=== PATIENT | female | born 1930 | race Caucasian/White ===

== ENCOUNTER 2017-05-16 19:14 | Inpatient (IN) | payer OTHER ==
[~2017-05-16] VITALS: Ht 170.2 cm; Wt 93.5 kg
[~2017-05-16 19:14] MED LIST: ACETAMINOPHEN325 M1 PO; ALPRAZOLAM0.25 MG PO; ATARAX,VISTARIL25 MG PO; COLACE100 MG PO; EFFEXOR75 MG PO; LOTENSIN20 MG PO; MAGIC BULLET10 MG RC; MILK OF MAGNESI10 ML PO; NITROSTAT0.4 MG PO; NITROSTAT0.4 MG SL; PERCOCET 5/31 TABLET PO; PRILOSEC20 MG PO; REGLAN5 MG PO; SENNA LAXATIVE1 EACH PO; TOPROL XL50 MG PO; TRAMADOL HCL50 MG PO; VICODIN,LORT1 TABLET PO; ZOLOFT50 MG PO
[2017-05-16 19:37] LABS: MCH 29.9 PG (29.0-34.0); MCHC 31.9 G/DL (30.0-36.0); MCV 93.7 FL (83-99); MEAN PLAT.VOLUME 9.8 uM^3 (9.5-12.4); PLATELET COUNT 242 K/uL (156-360); RBC DIS.WIDTH-CV 13.2 % (11.8-14.6); RBC DIS.WIDTH-SD 45.1 % (39-53); RED BLOOD COUNT 3.95 M/uL (3.80-5.20); WHITE BLOOD COUNT 6.1 K/uL (4.1-10.2)
[2017-05-16 19:49] LABS: CHLORIDE 103 mEq/L (99-109); POTASSIUM 3.5 mEq/L (3.7-5.4); SODIUM 139 mEq/L (136-147)
[2017-05-16 19:51] LABS: GLUCOSE 121 mg/dL (70-99)
[2017-05-16 19:52] LABS: ANION GAP 11 MEQ/L (2-14)
[2017-05-16 19:54] LABS: GFR ESTIMATE (CALCULATED) 50 mL/min/
[2017-05-16 19:55] LABS: UREA NITROGEN (BUN) 16 mg/dL (9-23)
[2017-05-16 20:54] LABS: TROP-I INTERPRETATION NEGATIVE; TROPONIN-I < 0.01 ng/mL (0.0-0.30)
[2017-05-16] MEDS ORDERED: NORVASC10 MG PO (21:05)
[2017-05-16] MEDS ORDERED: TOPROL XL100 MG PO (21:05)
[2017-05-16] MEDS ORDERED: VITAMIN B-12500 MC5 SL (21:06)
[2017-05-16] MEDS ORDERED: ATARAX10 MG PO (21:07)
[2017-05-16] MEDS ORDERED: HYDROCODON-ACE1 EAC7 PO ×2 (21:08→21:12)
[2017-05-16] MEDS ORDERED: SENNA S TABLET1 EACH PO (21:08)
[2017-05-16] MEDS ORDERED: LIDOCAINE20 MG/1 M3 IJ (21:11)
[2017-05-16] MEDS ORDERED: EXTRA STRENGTH500 M1 PO (21:12)
[2017-05-16] MEDS ORDERED: IPRATR-ALBUTEROL3 ML IH (21:13)
[2017-05-16] MEDS ORDERED: ENEMA133 M2 PR (21:15)
[2017-05-16] MEDS ORDERED: ROBAFEN CF SYR118 M1 PO (21:15)
[2017-05-16] MEDS ORDERED: MILK OF MAGN PO (21:16)
[2017-05-16] MEDS ORDERED: ACETAMINOPHEN325 M1 PO (21:17)
[2017-05-16] MEDS ORDERED: BISAC-EVAC10 MG PR (21:20)
[2017-05-16] MEDS ORDERED: DEEP SEA 0.65% BOTH NARES (21:21)
[2017-05-16] MEDS ORDERED: DUONEB 2.5-0.5 M3 ML AEROSOL (21:23)
[2017-05-16] MEDS ORDERED: PROTONIX40 MG PO (21:24)
[2017-05-16] MEDS ORDERED: GABAPENTIN300 MG PO (21:25)
[2017-05-16] MEDS ORDERED: EFFEXOR XR150 MG PO (23:14)
[2017-05-16 23:45] VITALS: BP 141/59
[2017-05-17 00:45] LABS: INFLUENZA A VIRAL ANTIGEN NEGATIVE; INFLUENZA B VIRAL ANTIGEN NEGATIVE
[2017-05-17 04:40] VITALS: BP 124/67
[2017-05-17 06:01] LABS: EOSINOPHIL (%) 3.4 % (0-5); EOSINOPHIL COUNT 0.2 K/uL (0-0.3); HEMATOCRIT 34.8 % (36.0-46.0); IMMATURE GRANULOCYTE (%) 0.7 % (0.0-0.7); INSTRUMENT ABS NEUTROPHIL CT 3.9 K/uL; LYMPHOCYTE COUNT 0.9 K/uL (1.0-2.8); MCH 30.6 PG (29.0-34.0); MCHC 32.2 G/DL (30.0-36.0); MCV 95.1 FL (83-99); MEAN PLAT.VOLUME 10.4 uM^3 (9.5-12.4); MONOCYTE (%) 9.9 % (3-12); MONOCYTE COUNT 0.6 K/uL (0-0.8); NEUTROPHIL (%) 69.9 % (45-76); NEUTROPHIL COUNT 3.9 K/uL (1.8-6.4); PLATELET COUNT 234 K/uL (156-360); RBC DIS.WIDTH-CV 13.5 % (11.8-14.6); RBC DIS.WIDTH-SD 46.5 % (39-53); RED BLOOD COUNT 3.66 M/uL (3.80-5.20); WHITE BLOOD COUNT 5.6 K/uL (4.1-10.2)
[2017-05-17 06:28] LABS: ANION GAP 10 MEQ/L (2-14); CHLORIDE 106 MEQ/L (99-109); GFR ESTIMATE (CALCULATED) > 59 mL/min/; GLUCOSE 132 mg/dL (70-99); POTASSIUM 4.1 MEQ/L (3.7-5.4); SAMPLE HEMOLYSIS CHECK 0; SAMPLE ICTERIC CHECK 0; SAMPLE LIPEMIA CHECK 0; SODIUM 141 MEQ/L (136-147); UREA NITROGEN (BUN) 13 mg/dL (9-23)
[2017-05-17 06:45] LABS: METH RESISTANT S AUREUS PCR NEGATIVE (NEGATIVE)
[2017-05-17 06:46] LABS: PROBE CHECK PASS; SPECIMEN PROCESSING CONTROL PASS
[2017-05-17 08:24] VITALS: BP 106/72
[2017-05-17 11:36] VITALS: BP 106/61
[2017-05-17 15:23] VITALS: BP 116/69
[2017-05-17 19:30] VITALS: BP 99/52
[2017-05-17 23:00] VITALS: BP 121/90
[2017-05-18 03:15] VITALS: BP 129/71
[2017-05-18 06:20] LABS: EOSINOPHIL (%) 0 % (0-5); HEMATOCRIT 34.8 % (36.0-46.0); IMMATURE GRANULOCYTE (%) 0.7 % (0.0-0.7); INSTRUMENT ABS NEUTROPHIL CT 3.9 K/uL; LYMPHOCYTE COUNT 0.5 K/uL (1.0-2.8); MCH 30.5 PG (29.0-34.0); MCHC 31.6 G/DL (30.0-36.0); MCV 96.4 FL (83-99); MEAN PLAT.VOLUME 10.2 uM^3 (9.5-12.4); MONOCYTE (%) 1.8 % (3-12); MONOCYTE COUNT 0.1 K/uL (0-0.8); NEUTROPHIL (%) 85.9 % (45-76); NEUTROPHIL COUNT 3.9 K/uL (1.8-6.4); PLATELET COUNT 228 K/uL (156-360); RBC DIS.WIDTH-CV 13.8 % (11.8-14.6); RBC DIS.WIDTH-SD 49.1 % (39-53); RED BLOOD COUNT 3.61 M/uL (3.80-5.20); WHITE BLOOD COUNT 4.6 K/uL (4.1-10.2)
[2017-05-18 06:45] LABS: ANION GAP 8 MEQ/L (2-14); CHLORIDE 108 MEQ/L (99-109); GFR ESTIMATE (CALCULATED) 41 mL/min/; GLUCOSE 149 mg/dL (70-99); POTASSIUM 4.8 MEQ/L (3.7-5.4); SAMPLE HEMOLYSIS CHECK 0; SAMPLE ICTERIC CHECK 0; SAMPLE LIPEMIA CHECK 0; SODIUM 141 MEQ/L (136-147); UREA NITROGEN (BUN) 16 mg/dL (9-23)
[2017-05-18 08:00] VITALS: BP 124/68
[2017-05-18 10:51] VITALS: BP 101/58
[2017-05-18 15:00] VITALS: BP 105/67
[2017-05-18 19:00] VITALS: BP 104/77
[2017-05-18 23:00] VITALS: BP 116/57
[2017-05-19 03:30] VITALS: BP 121/58
[2017-05-19 05:50] LABS: ANION GAP 9 MEQ/L (2-14); CHLORIDE 105 MEQ/L (99-109); GFR ESTIMATE (CALCULATED) 30 mL/min/; GLUCOSE 132 mg/dL (70-99); POTASSIUM 4.8 MEQ/L (3.7-5.4); SAMPLE HEMOLYSIS CHECK 0; SAMPLE ICTERIC CHECK 0; SAMPLE LIPEMIA CHECK 0; SODIUM 140 MEQ/L (136-147)
[2017-05-19 05:53] LABS: EOSINOPHIL (%) 0 % (0-5); HEMATOCRIT 35.4 % (36.0-46.0); IMMATURE GRANULOCYTE (%) 0.7 % (0.0-0.7); IMMATURE GRANULOCYTE COUNT 0.1 K/uL; INSTRUMENT ABS NEUTROPHIL CT 6.1 K/uL; LYMPHOCYTE COUNT 0.6 K/uL (1.0-2.8); MCH 30.3 PG (29.0-34.0); MCHC 31.6 G/DL (30.0-36.0); MCV 95.7 FL (83-99); MEAN PLAT.VOLUME 10.4 uM^3 (9.5-12.4); MONOCYTE (%) 5.1 % (3-12); MONOCYTE COUNT 0.4 K/uL (0-0.8); NEUTROPHIL (%) 86.4 % (45-76); NEUTROPHIL COUNT 6.1 K/uL (1.8-6.4); PLATELET COUNT 249 K/uL (156-360); RBC DIS.WIDTH-SD 49.1 % (39-53); WHITE BLOOD COUNT 7.1 K/uL (4.1-10.2)
[2017-05-19 06:40] LABS: UREA NITROGEN (BUN) 28 mg/dL (9-23)
[2017-05-19 08:37] VITALS: BP 125/86
[2017-05-19 12:31] VITALS: BP 106/69
[2017-05-19 16:00] VITALS: BP 129/65
[2017-05-19 20:44] VITALS: BP 119/67
[2017-05-20 00:23] VITALS: BP 126/68
[2017-05-20 04:29] VITALS: BP 121/74
[2017-05-20 06:09] LABS: EOSINOPHIL (%) 0 % (0-5); HEMATOCRIT 37.4 % (36.0-46.0); IMMATURE GRANULOCYTE (%) 1.2 % (0.0-0.7); IMMATURE GRANULOCYTE COUNT 0.1 K/uL; INSTRUMENT ABS NEUTROPHIL CT 6.8 K/uL; LYMPHOCYTE COUNT 0.5 K/uL (1.0-2.8); MCH 29.3 PG (29.0-34.0); MCHC 30.5 G/DL (30.0-36.0); MCV 96.1 FL (83-99); MEAN PLAT.VOLUME 9.9 uM^3 (9.5-12.4); MONOCYTE (%) 5.9 % (3-12); MONOCYTE COUNT 0.5 K/uL (0-0.8); NEUTROPHIL COUNT 6.8 K/uL (1.8-6.4); PLATELET COUNT 256 K/uL (156-360); RBC DIS.WIDTH-CV 14.2 % (11.8-14.6); RBC DIS.WIDTH-SD 49.7 % (39-53); RED BLOOD COUNT 3.89 M/uL (3.80-5.20); WHITE BLOOD COUNT 7.8 K/uL (4.1-10.2)
[2017-05-20 06:46] LABS: ANION GAP 9 MEQ/L (2-14); CHLORIDE 106 MEQ/L (99-109); GFR ESTIMATE (CALCULATED) 35 mL/min/; GLUCOSE 118 mg/dL (70-99); POTASSIUM 4.6 MEQ/L (3.7-5.4); SAMPLE HEMOLYSIS CHECK 0; SAMPLE ICTERIC CHECK 0; SAMPLE LIPEMIA CHECK 0; SODIUM 139 MEQ/L (136-147); UREA NITROGEN (BUN) 37 mg/dL (9-23)
[2017-05-20 08:01] VITALS: BP 127/71
[2017-05-20 11:57] VITALS: BP 104/73
[2017-05-20] MEDS ORDERED: DOXYCYCLINE HY100 M3 PO (14:24)
[2017-05-20] MEDS ORDERED: LEVOFLOXACIN750 MG PO (14:25)
[2017-05-20] MEDS ORDERED: ASPIR-LOW81 MG PO (14:26)
[2017-05-20] MEDS ORDERED: PREDNISONE10 MG PO (14:27)
[2017-05-20 15:43] VITALS: BP 146/68
== END 2017-05-20 17:37 | DRG 193 ==
LOC: EME → EDBD 19:14 → 4EAST 21:33 → EDOF 21:33 → 4EAST 23:44
PROVIDERS: Emergency Medicine; Hospitalist; Internal Medicine
DX: J18.9 Pneumonia, unspecified organism (principal); G93.41 Metabolic encephalopathy; N17.9 Acute kidney failure, unspecified; J96.11 Chronic respiratory failure with hypoxia; I48.91 Unspecified atrial fibrillation; I27.2 Other secondary pulmonary hypertension; I07.1 Rheumatic tricuspid insufficiency; G20 Parkinson's disease; J98.01 Acute bronchospasm; E78.5 Hyperlipidemia, unspecified; F32.9 Major depressive disorder, single episode, unspecified; I10 Essential (primary) hypertension; K21.9 Gastro-esophageal reflux disease without esophagitis; Y95 Nosocomial condition; Z99.81 Dependence on supplemental oxygen; Z85.038 Personal history of other malignant neoplasm of large intestine; Z87.891 Personal history of nicotine dependence
CPT/HCPCS: 71010; 71020; 71250; 80048; 81003; 84484; 85025; 85027; 87040; 87070; 87205; 87449; 87502; 87641; 93005; 93306; 94640; 94640 76; 94668; 94799; 99202; 99281; 99285; J0456; J1644; J1940; J2543; J2920; J3370; J7030; J7050; J7512

== ENCOUNTER 2017-06-08 01:26 | Inpatient (IN) | payer OTHER ==
[~2017-06-08] VITALS: Ht 167.6 cm; Wt 108.8 kg
[~2017-06-08 01:26] MED LIST changes: +ASPIR-LOW81 MG PO; +ATARAX10 MG PO; +BISAC-EVAC10 MG PR; +DEEP SEA 0.65% BOTH NARES; +DOXYCYCLINE HY100 M3 PO; +DUONEB 2.5-0.5 M3 ML AEROSOL; +EFFEXOR XR150 MG PO; +ENEMA133 M2 PR; +EXTRA STRENGTH500 M1 PO; +GABAPENTIN300 MG PO; +HYDROCODON-ACE1 EAC7 PO; +IPRATR-ALBUTEROL3 ML IH; +LEVOFLOXACIN750 MG PO; +LIDOCAINE20 MG/1 M3 IJ; +MILK OF MAGN PO; +NORVASC10 MG PO; +PREDNISONE10 MG PO; +PROTONIX40 MG PO; +ROBAFEN CF SYR118 M1 PO; +SENNA S TABLET1 EACH PO; +TOPROL XL100 MG PO; +VITAMIN B-12500 MC5 SL
[2017-06-08 02:22] LABS: BASE EXCESS 5.9 mEq/L (-3 to +3); BICARBONATE 33.5 mEq/L (22-26); METHEMOGLOBIN 1.2 % (0-1.5); PCO2 65 mm Hg (35-45); PO2 76 mm Hg (80-100); pH 7.32 (7.35-7.45)
[2017-06-08 02:24] LABS: COMMENTS - BLOOD GASES C+A+; DEVICE NC; O2 FLOW 6 L/MIN; SITE RR
[2017-06-08 02:51] LABS: EOSINOPHIL (%) 2.7 % (0-5); EOSINOPHIL COUNT 0.2 K/uL (0-0.3); HEMATOCRIT 33.9 % (36.0-46.0); IMMATURE GRANULOCYTE (%) 0.5 % (0.0-0.7); INSTRUMENT ABS NEUTROPHIL CT 4.4 K/uL; LYMPHOCYTE COUNT 0.6 K/uL (1.0-2.8); MCH 29.7 PG (29.0-34.0); MCHC 30.4 G/DL (30.0-36.0); MCV 97.7 FL (83-99); MEAN PLAT.VOLUME 9.9 uM^3 (9.5-12.4); MONOCYTE (%) 8.3 % (3-12); MONOCYTE COUNT 0.5 K/uL (0-0.8); NEUTROPHIL (%) 77.7 % (45-76); NEUTROPHIL COUNT 4.4 K/uL (1.8-6.4); PLATELET COUNT 185 K/uL (156-360); RBC DIS.WIDTH-CV 14.9 % (11.8-14.6); RBC DIS.WIDTH-SD 52.7 % (39-53); RED BLOOD COUNT 3.47 M/uL (3.80-5.20); WHITE BLOOD COUNT 5.7 K/uL (4.1-10.2)
[2017-06-08 03:03] LABS: INTER. NORMALIZED RATIO 1.1; PROTHROMBIN TIME 11.4 (9.2-11.2); PTT 32.1 (25-32)
[2017-06-08 03:04] LABS: CHLORIDE 103 mEq/L (99-109); POTASSIUM 4.8 mEq/L (3.7-5.4); SODIUM 141 mEq/L (136-147)
[2017-06-08 03:06] LABS: GLUCOSE 133 mg/dL (70-99)
[2017-06-08 03:07] LABS: ANION GAP 10 MEQ/L (2-14)
[2017-06-08 03:09] LABS: GFR ESTIMATE (CALCULATED) 35 mL/min/
[2017-06-08 03:10] LABS: UREA NITROGEN (BUN) 27 mg/dL (9-23)
[2017-06-08 03:13] LABS: TROP-I INTERPRETATION NEGATIVE; TROPONIN-I < 0.01 ng/mL (0.0-0.30)
[2017-06-08 04:02] LABS: ADD MIUA? YES; BILIRUBIN NEGATIVE; BLOOD NEGATIVE; COLOR YELLOW ((YELLOW)); GLUCOSE (STRIP) NEGATIVE; KETONES NEGATIVE; LEUKOCYTES NEGATIVE; NITRITE NEGATIVE; PROTEIN (STRIP) 100; SPECIFIC GRAVITY 1.025 (1.000-1.030); UROBILINOGEN 0.2 MG/DL (0.2-1.0)
[2017-06-08 04:19] LABS: BACTERIA 3+ /HPF; CASTS PRESENT /LPF; EPITHELIAL CELLS 1+ /HPF; MUCUS 1+ /LPF; RED BLOOD CELLS NONE SEEN /HPF (0-5); UCUL ADDED? YES
[2017-06-08 04:20] LABS: CRYSTALS PRESENT
[2017-06-08 04:21] LABS: AMORPHOUS URATES CRYSTALS 2+; COARSE GRANULAR CASTS RARE /LPF
[2017-06-08 09:15] LABS: TROP-I INTERPRETATION NEGATIVE; TROPONIN-I < 0.01 ng/mL (0.0-0.30)
[2017-06-08] MEDS ORDERED: VITAMIN B-1000 MCG/1 PO (11:31)
[2017-06-08] MEDS ORDERED: VENLAFAXINE HC150 M1 PO (11:34)
[2017-06-08] MEDS ORDERED: ASPIR-LOW81 MG PO (11:35)
[2017-06-08] MEDS ORDERED: LASIX20 MG PO (11:36)
[2017-06-08] MEDS ORDERED: PRESERVISION A1 EAC2 PO (11:36)
[2017-06-08] MEDS ORDERED: POTASSIUM CHLO10 ME4 PO (11:37)
[2017-06-08] MEDS ORDERED: DUONEB 2.5-0.5 M3 ML AEROSOL (11:39)
[2017-06-08] MEDS ORDERED: COUGH SYRU100 MG/5 M PO (11:40)
[2017-06-08] MEDS ORDERED: OCEAN NASAL 0.645 ML BOTH NARES (11:41)
[2017-06-08] MEDS ORDERED: NITROSTAT0.4 MG SL (11:42)
[2017-06-08 13:36] LABS: TYPE OF FLUID PLEURAL
[2017-06-08 14:05] VITALS: BP 119/56
[2017-06-08 14:23] LABS: BODY FLUID LDH 87 IU/L
[2017-06-08 14:25] LABS: BODY FLUID RBC'S 27000 /MM^3 (0-100); BODY FLUID WBC'S 1144 /MM^3 (0-500)
[2017-06-08 14:30] LABS: MONONUCLEAR WBC'S 70 %; POLYNUCLEAR WBC'S 30 % (0-25)
[2017-06-08 15:09] LABS: TROP-I INTERPRETATION NEGATIVE; TROPONIN-I < 0.01 ng/mL (0.0-0.30)
[2017-06-08 17:16] VITALS: BP 126/77
[2017-06-08 19:12] VITALS: BP 130/97
[2017-06-08 23:35] VITALS: BP 148/87
[2017-06-09 04:19] VITALS: BP 165/101
[2017-06-09 05:42] LABS: EOSINOPHIL (%) 4.4 % (0-5); EOSINOPHIL COUNT 0.3 K/uL (0-0.3); HEMATOCRIT 36.4 % (36.0-46.0); IMMATURE GRANULOCYTE (%) 0.5 % (0.0-0.7); INSTRUMENT ABS NEUTROPHIL CT 4.2 K/uL; LYMPHOCYTE COUNT 0.6 K/uL (1.0-2.8); MCH 29.4 PG (29.0-34.0); MCHC 30.8 G/DL (30.0-36.0); MCV 95.5 FL (83-99); MONOCYTE (%) 10.1 % (3-12); MONOCYTE COUNT 0.6 K/uL (0-0.8); NEUTROPHIL (%) 73.7 % (45-76); NEUTROPHIL COUNT 4.2 K/uL (1.8-6.4); PLATELET COUNT 214 K/uL (156-360); RBC DIS.WIDTH-CV 14.6 % (11.8-14.6); RBC DIS.WIDTH-SD 50.4 % (39-53); RED BLOOD COUNT 3.81 M/uL (3.80-5.20); WHITE BLOOD COUNT 5.7 K/uL (4.1-10.2)
[2017-06-09 05:48] LABS: ANION GAP 10 MEQ/L (2-14); CHLORIDE 97 MEQ/L (99-109); GFR ESTIMATE (CALCULATED) 56 mL/min/; GLUCOSE 110 mg/dL (70-99); POTASSIUM 3.9 MEQ/L (3.7-5.4); SAMPLE HEMOLYSIS CHECK 0; SAMPLE ICTERIC CHECK 0; SAMPLE LIPEMIA CHECK 0; SODIUM 142 MEQ/L (136-147); UREA NITROGEN (BUN) 16 mg/dL (9-23)
[2017-06-09 07:52] LABS: INTERNAL CONTROL VALID? YES
[2017-06-09 08:30] VITALS: BP 138/87
[2017-06-09 12:11] VITALS: BP 121/79
[2017-06-09 15:35] VITALS: BP 106/72
[2017-06-09 20:10] VITALS: BP 119/75
[2017-06-10 00:12] VITALS: BP 130/65
[2017-06-10 03:18] LABS: BODY FLUID PH 7.9 (())
[2017-06-10 04:52] VITALS: BP 120/60
[2017-06-10 07:34] VITALS: BP 132/86
[2017-06-10] MEDS ORDERED: LASIX20 MG PO (11:56)
[2017-06-10] MEDS ORDERED: POTASSIUM CHLO10 ME4 PO (11:56)
[2017-06-10 12:15] VITALS: BP 122/84
== END 2017-06-10 15:34 | DRG 189 ==
LOC: EME → EDBD 01:26 → EME 01:26 → EDOF 07:34 → 4EAST 07:34
PROVIDERS: Emergency Medicine; Internal Medicine
PROC: 0W993ZZ Drainage of Right Pleural Cavity, Percutaneous Approach (ICD-10-PCS; principal; 2017-06-08)
DX: J96.21 Acute and chronic respiratory failure with hypoxia (principal); I50.31 Acute diastolic (congestive) heart failure; J90 Pleural effusion, not elsewhere classified; N17.9 Acute kidney failure, unspecified; I48.2 Chronic atrial fibrillation; I11.0 Hypertensive heart disease with heart failure; I27.2 Other secondary pulmonary hypertension; I07.1 Rheumatic tricuspid insufficiency; J44.9 Chronic obstructive pulmonary disease, unspecified; Z68.41 Body mass index [BMI] 40.0-44.9, adult; G20 Parkinson's disease; E66.9 Obesity, unspecified; K21.0 Gastro-esophageal reflux disease with esophagitis; F33.42 Major depressive disorder, recurrent, in full remission; F03.90 Unspecified dementia, unspecified severity, without behavioral disturbance, psychotic disturbance, mood disturbance, and anxiety; H91.90 Unspecified hearing loss, unspecified ear; J98.11 Atelectasis; E04.1 Nontoxic single thyroid nodule; Y95 Nosocomial condition; K76.89 Other specified diseases of liver; Z85.038 Personal history of other malignant neoplasm of large intestine; Z87.891 Personal history of nicotine dependence; Z79.82 Long term (current) use of aspirin
CPT/HCPCS: 36600; 70450; 71010; 71250; 74176; 76942; 80048; 81003; 82803; 83605; 83615; 83615 91; 83880; 83986 90; 84484; 85025; 85027; 85610; 85730; 87040; 87070; 87075; 87086; 87205; 87449; 88108; 88305; 89051; 92610 GN; 93005; 93970; 94799; 99281; 99283; J0692; J0696; J1644; J1940; J2543; J3370; J7050

== ENCOUNTER 2017-07-16 19:44 | Inpatient (IN) | payer OTHER ==
[~2017-07-16] VITALS: Ht 165.1 cm; Wt 89.0 kg
[~2017-07-16 19:44] MED LIST changes: +COUGH SYRU100 MG/5 M PO; +LASIX20 MG PO; +OCEAN NASAL 0.645 ML BOTH NARES; +POTASSIUM CHLO10 ME4 PO; +PRESERVISION A1 EAC2 PO; +VENLAFAXINE HC150 M1 PO; +VITAMIN B-1000 MCG/1 PO
[2017-07-16 20:15] LABS: EOSINOPHIL (%) 2.7 % (0-5); EOSINOPHIL COUNT 0.2 K/uL (0-0.3); HEMATOCRIT 36.8 % (36.0-46.0); IMMATURE GRANULOCYTE (%) 0.5 % (0.0-0.7); INSTRUMENT ABS NEUTROPHIL CT 5.6 K/uL; LYMPHOCYTE COUNT 1.3 K/uL (1.0-2.8); MCH 28.6 PG (29.0-34.0); MCHC 29.1 G/DL (30.0-36.0); MCV 98.4 FL (83-99); MEAN PLAT.VOLUME 10.2 uM^3 (9.5-12.4); NEUTROPHIL (%) 68.8 % (45-76); NEUTROPHIL COUNT 5.6 K/uL (1.8-6.4); PLATELET COUNT 222 K/uL (156-360); RBC DIS.WIDTH-CV 14.4 % (11.8-14.6); RBC DIS.WIDTH-SD 51.8 % (39-53); RED BLOOD COUNT 3.74 M/uL (3.80-5.20); WHITE BLOOD COUNT 8.1 K/uL (4.1-10.2)
[2017-07-16 20:24] LABS: CHLORIDE 102 mEq/L (99-109); POTASSIUM 5.3 mEq/L (3.7-5.4); SODIUM 145 mEq/L (136-147)
[2017-07-16 20:26] LABS: GLUCOSE 114 mg/dL (70-99)
[2017-07-16 20:28] LABS: ANION GAP 11 MEQ/L (2-14); TOTAL BILIRUBIN 1.4 mg/dL (0.0-1.0)
[2017-07-16 20:30] LABS: ALKALINE PHOSPHATASE 99 IU/L (3-129); GFR ESTIMATE (CALCULATED) 38 mL/min/
[2017-07-16 20:31] LABS: UREA NITROGEN (BUN) 33 mg/dL (9-23)
[2017-07-16 20:31] LABS: ADD MIUA? YES; BILIRUBIN NEGATIVE; BLOOD NEGATIVE; GLUCOSE (STRIP) NEGATIVE; KETONES NEGATIVE; LEUKOCYTES NEGATIVE; NITRITE NEGATIVE; PROTEIN (STRIP) 30; UROBILINOGEN 0.2 MG/DL (0.2-1.0)
[2017-07-16 20:36] LABS: TROP-I INTERPRETATION NEGATIVE; TROPONIN-I < 0.01 ng/mL (0.0-0.30)
[2017-07-16 20:42] LABS: COLOR YELLOW ((YELLOW))
[2017-07-16 20:50] LABS: BACTERIA NONE SEEN /HPF; EPITHELIAL CELLS RARE /HPF; HYALINE CASTS 20-30 /LPF; MUCUS 2+ /LPF; RED BLOOD CELLS 0-5 /HPF (0-5); UCUL ADDED? NO; WHITE BLOOD CELLS 0-5 /HPF (0-5)
[2017-07-16] MEDS ORDERED: FUROSEMIDE20 MG PO (21:46)
[2017-07-16] MEDS ORDERED: OMEPRAZOLE20 MG PO (21:47)
[2017-07-16] MEDS ORDERED: KLOR-CON M1010 MEQ PO (21:47)
[2017-07-17 03:12] VITALS: BP 131/92
[2017-07-17 06:28] LABS: EOSINOPHIL (%) 1.3 % (0-5); EOSINOPHIL COUNT 0.1 K/uL (0-0.3); HEMATOCRIT 34.1 % (36.0-46.0); IMMATURE GRANULOCYTE (%) 0.8 % (0.0-0.7); IMMATURE GRANULOCYTE COUNT 0.1 K/uL; INSTRUMENT ABS NEUTROPHIL CT 6.2 K/uL; LYMPHOCYTE COUNT 0.9 K/uL (1.0-2.8); MCH 29.5 PG (29.0-34.0); MCHC 29.3 G/DL (30.0-36.0); MCV 100.6 FL (83-99); MEAN PLAT.VOLUME 10.6 uM^3 (9.5-12.4); MONOCYTE (%) 7.5 % (3-12); MONOCYTE COUNT 0.6 K/uL (0-0.8); NEUTROPHIL (%) 78.6 % (45-76); NEUTROPHIL COUNT 6.2 K/uL (1.8-6.4); PLATELET COUNT 201 K/uL (156-360); RBC DIS.WIDTH-CV 14.5 % (11.8-14.6); RBC DIS.WIDTH-SD 53.8 % (39-53); RED BLOOD COUNT 3.39 M/uL (3.80-5.20); WHITE BLOOD COUNT 7.9 K/uL (4.1-10.2)
[2017-07-17 06:48] LABS: ALKALINE PHOSPHATASE 92 IU/L (3-129); ANION GAP 9 MEQ/L (2-14); CHLORIDE 104 MEQ/L (99-109); GFR ESTIMATE (CALCULATED) 38 mL/min/; GLUCOSE 115 mg/dL (70-99); POTASSIUM 5.3 MEQ/L (3.7-5.4); SAMPLE HEMOLYSIS CHECK 0; SAMPLE ICTERIC CHECK 0; SAMPLE LIPEMIA CHECK 0; SODIUM 144 MEQ/L (136-147); UREA NITROGEN (BUN) 33 mg/dL (9-23)
[2017-07-17 07:50] VITALS: BP 134/65
[2017-07-17 13:26] LABS: INTERNAL CONTROL VALID? YES
[2017-07-17 16:35] VITALS: BP 138/65
[2017-07-17 19:07] VITALS: BP 127/60
[2017-07-17 22:33] VITALS: BP 135/51
[2017-07-18 06:57] LABS: HEMATOCRIT 32.7 % (36.0-46.0); MCH 28.8 PG (29.0-34.0); MCHC 29.4 G/DL (30.0-36.0); MCV 98.2 FL (83-99); MEAN PLAT.VOLUME 10.4 uM^3 (9.5-12.4); PLATELET COUNT 200 K/uL (156-360); RBC DIS.WIDTH-CV 14.5 % (11.8-14.6); RBC DIS.WIDTH-SD 52.2 % (39-53); RED BLOOD COUNT 3.33 M/uL (3.80-5.20); WHITE BLOOD COUNT 6.1 K/uL (4.1-10.2)
[2017-07-18 07:13] LABS: INTER. NORMALIZED RATIO 1.2; PROTHROMBIN TIME 13.2 SEC (10.2-12.9)
[2017-07-18 07:15] LABS: PTT 29.5 SEC (25-37)
[2017-07-18 07:37] LABS: ANION GAP 12 MEQ/L (2-14); CHLORIDE 104 MEQ/L (99-109); GFR ESTIMATE (CALCULATED) 56 mL/min/; GLUCOSE 104 mg/dL (70-99); SAMPLE HEMOLYSIS CHECK 0; SAMPLE ICTERIC CHECK 0; SAMPLE LIPEMIA CHECK 0; SODIUM 145 MEQ/L (136-147); UREA NITROGEN (BUN) 23 mg/dL (9-23)
[2017-07-18 07:38] LABS: POTASSIUM 4.2 MEQ/L (3.7-5.4)
[2017-07-18 08:17] VITALS: BP 136/64
[2017-07-18 12:07] LABS: TYPE OF FLUID PLEURAL
[2017-07-18 12:17] VITALS: BP 137/61
[2017-07-18 12:59] LABS: BODY FLUID LDH 97 IU/L
[2017-07-18 13:00] LABS: BODY FLUID PROTEIN < 3 G/DL
[2017-07-18 13:18] LABS: BODY FLUID EOSINOPHILS 1 % (0-25); BODY FLUID RBC'S 25000 /MM^3 (0-100); BODY FLUID WBC'S 1519 /MM^3 (0-500); MONONUCLEAR WBC'S 67 %; POLYNUCLEAR WBC'S 32 % (0-25)
[2017-07-18 15:32] VITALS: BP 131/67
[2017-07-18 19:15] VITALS: BP 157/83
[2017-07-18 23:00] VITALS: BP 121/64
[2017-07-19 03:20] VITALS: BP 122/82
[2017-07-19 06:50] LABS: HEMATOCRIT 36.2 % (36.0-46.0); MCH 29.1 PG (29.0-34.0); MCHC 30.4 G/DL (30.0-36.0); MCV 95.8 FL (83-99); MEAN PLAT.VOLUME 10.8 uM^3 (9.5-12.4); PLATELET COUNT 254 K/uL (156-360); RBC DIS.WIDTH-CV 14.3 % (11.8-14.6); RBC DIS.WIDTH-SD 50.1 % (39-53); RED BLOOD COUNT 3.78 M/uL (3.80-5.20)
[2017-07-19 07:06] VITALS: BP 153/92
[2017-07-19 07:49] LABS: ANION GAP 14 MEQ/L (2-14); CHLORIDE 96 MEQ/L (99-109); GFR ESTIMATE (CALCULATED) > 59 mL/min/; GLUCOSE 123 mg/dL (70-99); POTASSIUM 3.9 MEQ/L (3.7-5.4); SAMPLE HEMOLYSIS CHECK 0; SAMPLE ICTERIC CHECK 0; SAMPLE LIPEMIA CHECK 0; SODIUM 141 MEQ/L (136-147); UREA NITROGEN (BUN) 12 mg/dL (9-23)
[2017-07-19 15:35] VITALS: BP 146/87
[2017-07-19 23:41] VITALS: BP 146/76
[2017-07-20 07:03] LABS: ALKALINE PHOSPHATASE 64 IU/L (3-129); ANION GAP 9 MEQ/L (2-14); CHLORIDE 95 MEQ/L (99-109); GFR ESTIMATE (CALCULATED) > 59 mL/min/; GLUCOSE 92 mg/dL (70-99); POTASSIUM 3.4 MEQ/L (3.7-5.4); SAMPLE HEMOLYSIS CHECK 0; SAMPLE ICTERIC CHECK 0; SAMPLE LIPEMIA CHECK 0; SODIUM 139 MEQ/L (136-147); TOTAL BILIRUBIN 1.5 MG/DL (0.0-1.0); UREA NITROGEN (BUN) 10 mg/dL (9-23)
[2017-07-20 07:06] VITALS: BP 150/77
[2017-07-20] MEDS ORDERED: OMNICEF300 MG PO (11:10)
== END 2017-07-20 15:52 | DRG 291 ==
LOC: EME → EDBD 19:44 → EDOF 23:36 → 5EAST 23:36 → ENRESERV 23:43 → 5EAST 07-17 02:55 → ENPENDDIS 07-20 → 5EAST 07-20 15:52
PROVIDERS: Emergency Medicine; Internal Medicine; Radiology Diagnostic Radiology; Student in an Organized Health Care Education/Training Program
PROC: 0W993ZZ Drainage of Right Pleural Cavity, Percutaneous Approach (ICD-10-PCS; principal; 2017-07-18)
DX: I11.0 Hypertensive heart disease with heart failure (principal); I50.33 Acute on chronic diastolic (congestive) heart failure; J96.21 Acute and chronic respiratory failure with hypoxia; Y95 Nosocomial condition; J18.9 Pneumonia, unspecified organism; N17.9 Acute kidney failure, unspecified; I27.2 Other secondary pulmonary hypertension; D64.9 Anemia, unspecified; G20 Parkinson's disease; I48.0 Paroxysmal atrial fibrillation; F03.90 Unspecified dementia, unspecified severity, without behavioral disturbance, psychotic disturbance, mood disturbance, and anxiety; F32.9 Major depressive disorder, single episode, unspecified; I36.1 Nonrheumatic tricuspid (valve) insufficiency; K21.9 Gastro-esophageal reflux disease without esophagitis; E66.9 Obesity, unspecified; F41.9 Anxiety disorder, unspecified; E87.5 Hyperkalemia; Z68.32 Body mass index [BMI] 32.0-32.9, adult; Z79.82 Long term (current) use of aspirin; Z87.891 Personal history of nicotine dependence; Z85.038 Personal history of other malignant neoplasm of large intestine
CPT/HCPCS: 70450; 70486; 71010; 71020; 71250; 76942; 80048; 80053; 80202; 81003; 82565; 82945; 83605; 83615 91; 83880; 84157; 84484; 85025; 85027; 85610; 85730; 87040; 87070; 87075; 87205; 87449; 88108; 88305; 89051; 93005; 93306; 94010; 94640; 94640 76; 94667; 94668; 94799; 99202; 99281; 99285; J0456; J1644; J1940; J2543; J3370; J7030; J7050